=== PATIENT | female | born 1960 | race Caucasian/White ===

== ENCOUNTER 2017-10-08 07:35 | Day surgery (SDC) | payer BC ==
[~2017-10-08 07:35] MED LIST: Bupivacaine 0.5% 30 ML SDV ONE; Dexamethasone 4 MG/ML SDV ONE; Midazolam 1 MG/ML 2 ML SDV ONE; Ondansetron 4 MG/2 ML SDV ONE; Propofol 200 MG/20 ML SDV ONE; Rocuronium 50 MG/5 ML Vial ONE; Succinylcholine 200 MG/10 ML MDV ONE; fentaNYL 250 MCG/5 ML SDV ONE
[2017-10-08] MEDS ORDERED: Dexamethasone 4 MG/ML 5 ML MDV ONE (07:43)
[2017-10-08] MEDS ORDERED: EPINEPHrine 1 MG/ML SDV ONE (07:43)
[2017-10-08] MEDS ORDERED: Bupivacaine 0.5% 50 ML MDV ONE (07:43)
[2017-10-08] MEDS ORDERED: Bupivacaine 0.5%/EPINEPHrine 1:200,000 50 ML MDV ONE (07:43)
[2017-10-08] MEDS ORDERED: Povidone-Iodine 10% Soln 118.25 ML Bottle ONE (07:44)
[2017-10-08] MEDS ORDERED: ceFAZolin 2 GM in Premix Bag 1 BAG IV ONE (08:45)
[2017-10-08] MEDS ORDERED: Lactated Ringers 1,000 ML IV SCH (08:45)
[2017-10-08] MEDS ORDERED: Lidocaine 1% 2 ML ONE (08:45)
--- NOTE | 2017-10-08 16:37 | OR ---
DATE OF PROCEDURE: 10/08/2017 PREOPERATIVE DIAGNOSES: 1. Left shoulder impingement. 2. Carpal tunnel syndrome. POSTOPERATIVE DIAGNOSES: 1. Left shoulder impingement. 2. Carpal tunnel syndrome. PROCEDURE: 1. Left shoulder arthroscopy with limited debridement. 2. Left carpal tunnel release. ANESTHESIA: General endotracheal intubation. FLUID: Lactated Ringer solution. ESTIMATED BLOOD LOSS: Less than 10 mL. COMPLICATIONS: None. SPECIMEN: None. DISCHARGE DISPOSITION: Stable to PACU. HISTORY AND INDICATIONS FOR THE PROCEDURE: The patient was seen preoperatively in the clinic. She had previously been diagnosed with bilateral carpal tunnel syndrome few years ago, but due to insurance reasons was unable to get the procedure performed. She had been treated extensively for left shoulder pain, but this was not getting better either. Preoperative imaging did not show a rotator cuff tear but did show some bursitis and tendinitis. Risks and benefits of the procedure were explained to the patient. Informed consent was obtained. DETAILS OF PROCEDURE: The patient was seen preoperatively by myself and the anesthesia staff in the preoperative holding area where the operative site was marked. She was brought to the operative suite by the anesthesia staff where a left interscalene block was performed plus general endotracheal intubation. The left upper extremity was then prepped and draped in a sterile manner after a well-padded tourniquet had been placed on the left arm. A time- out was called identifying the correct patient, correct procedure, the correct site, and antibiotics had begun within appropriate period of time. I exsanguinated the left arm and raised the tourniquet. I then started with my carpal tunnel release. This was in line with just proximal to the first ring in line with the radial border of the fourth digit. I used a 15 blade and then used a self-retaining retractor. I then used a knife to remove the subcutaneous fat out of the way. I identified the transverse carpal ligament and then went through the transverse carpal ligament with a 15 blade carefully so as not to injure the median nerve. I then used long Metzenbaums to go beneath and above the deep palmar fascia proximally and distally and then using a Ragnell under direct visualization, cut through the deep palmar fascia proximally and distally. After this was performed, we copiously irrigated with saline and then applied few drops of dexamethasone and then closed with 3 horizontal 3-0 nylon mattress sutures. We then placed Betadine-soaked Adaptic and a sterile dressing, followed by an Jarod. We then tore down and then re-prepped the left upper extremity for the left shoulder arthroscopy. We again did another time-out, and then I did make a posterior portal and entered the joint with a trocar and then found that there was very minor fraying of the labrum, and then I placed a spinal needle for my anterior portal and then made an anterior portal and then used cautery unit to just clean up the free edges. This did not require a great deal of time. I then removed my instruments and then entered the subacromial space through the posterior portal and then made a lateral portal and then identified quite a bit of bursitis within the subacromial bursa. I spent a great deal of time shaving this and then cauterized it and then identifying the acromion. She did have a type 2 acromion, and then I used a kayla to remove the inferior edge of the acromion, taking about 50%. After this had been performed, we did take some final pictures and then removed all instruments from the joint and then closed with 3-0 nylon [id number] mattress sutures, followed by Betadine-soaked Adaptic, followed by sterile dressing. The patient was then transferred to her hospital bed in supine position and taken to the PACU in stable condition. Ramses Bashir DO /[id number]
== END 2017-10-08 12:24 | disposition home or self-care (01) ==
LOC: JP.SDS 07:35
PROVIDERS: ATTEND Orthopaedic Surgery
DX: G56.02 Carpal tunnel syndrome, left upper limb (principal); M75.42 Impingement syndrome of left shoulder; F41.9 Anxiety disorder, unspecified; F32.9 Major depressive disorder, single episode, unspecified; E66.9 Obesity, unspecified; Z79.899 Other long term (current) drug therapy
CPT/HCPCS: 29822; 64721; J0171; J0330; J0690; J1100; J2250; J2405; J2704; J3010; J7120; J2001

== ENCOUNTER 2017-10-29 07:39 | Day surgery (SDC) | payer BC ==
[~2017-10-29 07:39] MED LIST changes: -Bupivacaine 0.5% 30 ML SDV ONE; -Dexamethasone 4 MG/ML SDV ONE; +Lidocaine 0.5% 50 ML SDV ONE; -Ondansetron 4 MG/2 ML SDV ONE; -Rocuronium 50 MG/5 ML Vial ONE; -Succinylcholine 200 MG/10 ML MDV ONE; +fentaNYL 100 MCG/2 ML SDV ONE; -fentaNYL 250 MCG/5 ML SDV ONE
[2017-10-29] MEDS ORDERED: Povidone-Iodine 10% Soln 118.25 ML Bottle ONE (07:58)
[2017-10-29] MEDS ORDERED: Bupivacaine 0.5% 50 ML MDV ONE (07:58)
[2017-10-29] MEDS ORDERED: Dexamethasone 4 MG/ML 5 ML MDV ONE (07:58)
[2017-10-29] MEDS ORDERED: Lactated Ringers 1,000 ML IV SCH (08:15)
[2017-10-29] MEDS ORDERED: ceFAZolin 2 GM in Premix Bag 1 BAG IV ONE (08:15)
[2017-10-29] MEDS ORDERED: Ketorolac 60 MG/2 ML SDV IM ONE (11:31)
--- NOTE | 2017-10-29 11:34 | OR ---
DATE OF PROCEDURE: 10/29/2017 PREOPERATIVE DIAGNOSIS: Right carpal tunnel syndrome. POSTOPERATIVE DIAGNOSIS: Right carpal tunnel syndrome. PROCEDURE: Right carpal tunnel release. ANESTHESIA: Edvin block plus conscious sedation. FLUID: Lactated Ringer solution. ESTIMATED BLOOD LOSS: Less 10 mL. COMPLICATIONS: None. SPECIMEN: None. DISCHARGE DISPOSITION: Stable to PACU. HISTORY AND INDICATIONS FOR THE PROCEDURE: The patient is well known to me. We had previously performed a left carpal tunnel release as well as a left shoulder arthroscopy. She was having the same symptoms in the right hand. We had planned on staging this right versus left for some time. Risks and benefits of the procedure were explained to the patient. Informed consent was obtained. DETAILS OF THE PROCEDURE: The patient was seen preoperatively by myself and the Anesthesia staff in the preop holding area, where the operative site was marked. She was brought to the operative suite by Anesthesia staff, where a Edvin block was administered to the right upper extremity. The right upper extremity was then prepped and draped in a sterile manner. Time-out was called identifying the correct patient, the correct procedure, the correct site, and the antibiotics had begun within appropriate period of time. I placed a blue towel under the extensor surface of the wrist and used the left hand for positioning. I then made an incision just proximal to a line in line with the 1st metacarpal and the radial border of the 4th digit extending 1.5 cm. Bleeding was controlled with bipolar electrocautery. I removed some subcutaneous fat with a 15 blade. I then used a self- retaining retractor and was able to easily identify the transverse carpal ligament. I then incised this with a 15 blade. I then used small Metzenbaum scissors and went underneath and above the deep palmar fascia proximally and distally to the transverse carpal ligament and then using a Ragnell under direct visualization, divided the palmar fascia proximally and distally. After this had been accomplished, copiously irrigated with saline, applied a few drops of dexamethasone and then closed the incision with 3-0 nylon in an interrupted manner followed by Betadine-soaked Adaptic and a sterile dressing and an Jarod wrap. The patient's tourniquet was let down when Anesthesia felt that enough time had been past. The patient was then taken to the PACU in stable condition. Ramses Bashir DO /[id number]
== END 2017-10-29 12:00 | disposition home or self-care (01) ==
LOC: JP.SDS 07:39
PROVIDERS: ATTEND Orthopaedic Surgery
DX: G56.03 Carpal tunnel syndrome, bilateral upper limbs (principal); F41.9 Anxiety disorder, unspecified; Z88.1 Allergy status to other antibiotic agents; Z79.899 Other long term (current) drug therapy; Z90.49 Acquired absence of other specified parts of digestive tract
CPT/HCPCS: 64721; J0690; J1100; J1885; J2250; J2704; J3010; J7120